=== PATIENT | male | born 1970 | race Caucasian/White ===

== ENCOUNTER → 2018-07-03 | Outpatient (CLI) | payer OTHER ==
--- NOTE | 2018-07-03 15:02 | PCVCIMAG ---
APPROVED REPORT Study performed: 07/03/2018 08:31:37 EXAM: Comprehensive 2D, Doppler, and color-flow Echocardiogram Patient Location: Echo lab BSA: 1.93 HR: 84 bpmBP: 142/94 mmHg Rhythm: NSR Other Information Study Quality: Good Indications Murmur 2D Dimensions IVSd: 12.65 (7-11mm)LVOT Diam: 23.00 (18-24mm) LVDd: 40.13 mm PWd: 12.64 (7-11mm)Ascending Ao: 32.44 (22-36mm) LVDs: 23.65 (25-40mm) Left Atrium: 29.66 (27-40mm) Aortic Root: 34.76 mm LV Single Plane 4CH: 67.76 % LV Single Plane 2CH: 62.66 % Biplane EF: 65.3 % Volumes Left Atrial Volume (Systole) Single Plane 4CH: 23.12 mLSingle Plane 2CH: 21.74 mL LA ESV Index: 14.00 mL/m2 Aortic Valve AoV Peak Peña.: 3.04 m/s AO Peak Gr.: 36.94 mmHgLVOT Max P.18 mmHg AO Mean Gr.: 22.82 mmHgLVOT Mean P.68 mmHg AO V2 Mean: 2.32 m/sLVOT Max V: 1.02 m/s AO V2 VTI: 54.79 cm NITA (VTI): 1.52 [id number] V1 VTI: 20.41 cm NITA Vmax: 1.38 cm2 Mitral Valve E/A Ratio: 0.7 MV Decel. Time: 204.58 ms MV E Max Peña.: 0.66 m/s MV A Peña.: 0.98 m/s MV PHT: 59.33 ms IVRT: 51.90 ms TDI E/Lateral E': 9.43E/Medial E': 13.20 Medial E' Peña.: 0.05 m/s Lateral E' Peña.: 0.07 m/s Pulmonary Valve PV Peak Peña.: 1.09 m/sPV Peak Gr.: 4.72 mmHg Tricuspid Valve RAP Estimate: 7.00 mmHg Left Ventricle The left ventricle is normal size. There is normal LV segmental wall motion. Mild to moderate concentric left ventricular hypertrophy. Left ventricular systolic function is normal. The left ventricular ejection fraction is within the normal range. LVEF is 60-65%. Grade I - abnormal relaxation pattern. Right Ventricle The right ventricle is normal size. The right ventricular systolic function is normal. Atria The left atrium size is normal. The right atrium size is normal. Aortic Valve Aortic valve is calcified. Trace aortic regurgitation. The peak aortic valve gradient is 37 mmHg and the mean is 23 mmHg. The aortic valve area is 1.4 cm2. Mild to moderate aortic stenosis. Mitral Valve The mitral valve is normal in structure. There is no mitral valve regurgitation noted. No evidence of mitral valve stenosis. Tricuspid Valve The tricuspid valve is normal in structure. There is no tricuspid valve regurgitation noted. Pulmonic Valve The pulmonary valve is normal in structure. There is no pulmonic valvular regurgitation. Great Vessels The aortic root is normal in size. IVC is normal in size and collapses >50% with inspiration. Pericardium There is no pericardial effusion. <Conclusion> Left ventricular systolic function is normal. Mild to moderate concentric left ventricular hypertrophy. There is normal LV segmental wall motion. LVEF is 60-65%. Mild diastolic dysfunction Aortic valve is calcified. The peak aortic valve gradient is 37 mmHg and the mean is 23 mmHg. The aortic valve area is 1.4 cm2. Mild to moderate aortic stenosis. Trace aortic regurgitation. The mitral valve is normal in structure. No mitral valve regurgitation Pulmonary artery pressure could not be reliably ascertained There is no pericardial effusion.
== END | disposition home or self-care (01) ==
LOC: PCVCIMAG 08:30
PROVIDERS: ATTEND Family Medicine
DX: I35.0 Nonrheumatic aortic (valve) stenosis (principal); R01.1 Cardiac murmur, unspecified
CPT/HCPCS: 93306